=== PATIENT | female | born 1980 | race Two or more races ===

== ENCOUNTER → 2016-09-07 | Outpatient (CLI) | payer OTHER ==
[2016-09-07 08:23] LABS: ASPARTATE AMINO TRANSFERASE 15 U/L (15-37); BLOOD UREA NITROGEN 12 mg/dL (7-18)
== END | disposition home or self-care (01) ==
LOC: LAB 07:59
PROVIDERS: ATTEND Family Medicine
DX: N92.1 Excessive and frequent menstruation with irregular cycle (principal)
CPT/HCPCS: 36415; 80053; 82670; 83001; 83002; 84439; 84443; 84480; 85025

== ENCOUNTER → 2017-05-30 | Outpatient (CLI) | payer OTHER ==
[~2017-05-30] MED LIST: ACETAMINOPHEN 650 MG/20.3 ML UDC ONE; FENTANYL PF 100 MCG/2ML ONE; IBUP-1223 PO; LIDOCAINE-MPF 2% ,5ML ONE; LORA10CA PO; MAGN400T7 PO; MIDAZOLAM 1 MG/ML, 2ML ONE; MULT-658 PO; OXYcodone 5 MG/5 ML ORAL.SOL UDC ONE; PHEN10TA36 PO; PROPOFOL 10 MG/ML, 20ML ONE; VITA150T PO
== END ==
LOC: STAR 09:12
PROVIDERS: ATTEND Specialist
DX: Z02.9 Encounter for administrative examinations, unspecified (principal)

== ENCOUNTER 2017-06-06 10:23 | Day surgery (SDC) | payer OTHER ==
[~2017-06-06] VITALS: Ht 149.9 cm; Wt 64.0 kg
[~2017-06-06 10:23] MED LIST changes: -ACETAMINOPHEN 650 MG/20.3 ML UDC ONE; -FENTANYL PF 100 MCG/2ML ONE; -LIDOCAINE-MPF 2% ,5ML ONE; -MIDAZOLAM 1 MG/ML, 2ML ONE; -OXYcodone 5 MG/5 ML ORAL.SOL UDC ONE; -PROPOFOL 10 MG/ML, 20ML ONE
[2017-06-06] MEDS ORDERED: LACTATED RINGERS 1,000 ML IV SCH (10:45)
[2017-06-06] MEDS ORDERED: FENTANYL PF 100 MCG/2ML ONE (11:37)
[2017-06-06] MEDS ORDERED: MIDAZOLAM 1 MG/ML, 2ML ONE (11:37)
[2017-06-06 11:55] LABS: HCG UR SG 1.013 (1.003-1.030)
[2017-06-06] MEDS ORDERED: SCOPOLAMINE PATCH, 1.5MG PATCH.TD72 TD ONE (12:06)
[2017-06-06] MEDS ORDERED: EPINEPHRINE 1 MG/ML, 1ML ONE (12:17)
[2017-06-06] MEDS ORDERED: BUPIVACAINE/PF 0.25% ONE (12:17)
[2017-06-06] MEDS ORDERED: ONDANSETRON 2MG/ML, 2ML ONE (12:30)
[2017-06-06] MEDS ORDERED: DEXAMETHASONE 4 MG/ML, 1ML ONE (12:30)
[2017-06-06] MEDS ORDERED: PROPOFOL 10 MG/ML, 20ML ONE (12:30)
[2017-06-06] MEDS ORDERED: SUCCINYLCHOLINE 20 MG/ML, 10ML ONE (12:30)
[2017-06-06] MEDS ORDERED: KETOROLAC 30 MG/1 ML ONE (12:30)
[2017-06-06] MEDS ORDERED: ROCURONIUM 10 MG/ML,10ML ONE (12:30)
[2017-06-06] MEDS ORDERED: OXYcodone 5 MG/5 ML ORAL.SOL UDC PO PRN (13:00)
[2017-06-06] MEDS ORDERED: HYDROmorphone 1 MG/ML, 1ML IV PRN (13:00)
[2017-06-06] MEDS ORDERED: FENTANYL PF 100 MCG/2ML IV PRN (13:00)
[2017-06-06] MEDS ORDERED: ACETAMINOPHEN 325 MG TABLET PO PRN (13:00)
[2017-06-06] MEDS ORDERED: MEPERIDINE/PF 25MG/0.5ML IVPush PRN (13:00)
[2017-06-06] MEDS ORDERED: PROMETHAZINE 25 MG/ML, 1ML IV PRN (13:00)
[2017-06-07] MEDS ORDERED: LIDOCAINE-MPF 2% ,5ML ONE (13:58)
[2017-06-07] MEDS ORDERED: PROPOFOL 10 MG/ML, 20ML ONE (13:58)
== END 2017-06-06 17:00 ==
LOC: OUT 10:23
PROVIDERS: ATTEND Specialist
DX: Z30.2 Encounter for sterilization (principal); Z30.432 Encounter for removal of intrauterine contraceptive device
CPT/HCPCS: 58301; 58661; 81025; 88305; J0171; J0330; J1100; J1885; J2250; J2405; J2704; J3010; J3490; J7120; 88302

== ENCOUNTER → 2019-07-22 | Outpatient (CLI) | payer OTHER ==
[~2019-07-22] MED LIST changes: -MAGN400T7 PO; +MAGN400T9 PO
[2019-07-22 08:03] LABS: BASOPHILS # (AUTO) 0.07 x10^3/uL (0-0.1); BASOPHILS % (AUTO) 1 % (0-1); EOSINOPHILS # (AUTO) 0.03 x10^3/uL (0-0.4); EOSINOPHILS % (AUTO) 0 % (1-7); LYMPHOCYTES # (AUTO) 2.16 x10^3/uL (1-3.4); LYMPHOCYTES % (AUTO) 29 % (22-44); MD NO; MEAN CORPUSCULAR HEMOGLOBIN 31.8 pg (27.0-34.8); MEAN CORPUSCULAR HGB CONC 33.5 g/dL (32.4-35.8); MEAN CORPUSCULAR VOLUME 94.8 fL (80-100); MEAN PLATELET VOLUME 7.7 fL (7.4-10.4); MONOCYTES # (AUTO) 0.46 x10^3/uL (0.2-0.8); MONOCYTES % (AUTO) 6 % (2-9); NEUTROPHILS # (AUTO) 4.75 x10^3/uL (1.8-6.8); NEUTROPHILS % (AUTO) 64 % (42-75); PLATELET COUNT 369 x10^3/uL (130-400); RED BLOOD COUNT 4.38 x10^6/uL (3.82-5.3); RED CELL DISTRIBUTION WIDTH 13.9 % (9.6-15.2)
[2019-07-22 08:09] LABS: ALBUMIN 3.5 g/dL (3.4-5.0); ANION GAP 7 mmol/L (5-15); CALCIUM 8.3 mg/dL (8.5-10.1); CHLORIDE 105 mmol/L (98-107)
[2019-07-22 08:18] LABS: ALANINE AMINOTRANSFERASE 24 U/L (12-78); ALKALINE PHOSPHATASE 53 U/L (45-117); BILIRUBIN,TOTAL 0.4 mg/dL (0.2-1.0); CHOL/HDL RATIO 3.3; CHOLESTEROL, TOTAL 174 mg/dL (140-239); FREE T4 (FREE THYROXINE) 0.98 ng/dL (0.76-1.46); HDL CHOL % 30 % (28-40); HDL CHOLESTEROL (DIRECT) 53 mg/dL (40-60); LDL CHOLESTEROL,CALCULATED 100 mg/dL (54-169); LDL/HDL RATIO 1.9 (0.5-3.0); TRIGLYCERIDES 106 mg/dL (50-200); VLDL CHOLESTEROL 21 mg/dL (0-25)
== END | disposition home or self-care (01) ==
LOC: LAB 07:46
PROVIDERS: ATTEND Nurse Practitioner Primary Care
DX: Z00.00 Encounter for general adult medical examination without abnormal findings (principal)
CPT/HCPCS: 36415; 80053; 80061; 82306; 84439; 84443; 84481; 85025

== ENCOUNTER 2021-01-25 07:34 | Outpatient (CLI) | payer OTHER ==
[2021-01-25] MEDS ORDERED: TURMERIC PO (07:57)
[2021-01-25] MEDS ORDERED: COLL1POW2 PO (07:57)
[2021-01-25] MEDS ORDERED: [UNRECOGNIZED DRUG - CODE] EACHEYE (07:57)
[2021-01-25] MEDS ORDERED: FEXO1TAB29 PO (07:57)
[2021-01-25 08:28] LABS: BASOPHILS % (AUTO) 1 % (0-1); EOSINOPHILS % (AUTO) 1 % (1-7); LYMPHOCYTES % (AUTO) 31 % (22-44); MEAN CORPUSCULAR HEMOGLOBIN 32.3 pg (27.0-34.8); MEAN PLATELET VOLUME 7.5 fL (7.4-10.4); MONOCYTES % (AUTO) 6 % (2-9); NEUTROPHILS % (AUTO) 61 % (42-75); PLATELET COUNT 331 x10^3/uL (130-400); RED BLOOD COUNT 4.32 x10^6/uL (3.82-5.3); RED CELL DISTRIBUTION WIDTH 14.1 % (9.6-15.2)
[2021-01-25 08:37] LABS: ALANINE AMINOTRANSFERASE 23 U/L (12-78); ALBUMIN 3.4 g/dL (3.4-5.0); ANION GAP 6 mmol/L (5-15); CALCIUM 8.4 mg/dL (8.5-10.1); CHLORIDE 108 mmol/L (98-107); CREATININE 0.61 mg/dL (0.55-1.02)
[2021-01-25 08:39] LABS: ALKALINE PHOSPHATASE 50 U/L (45-117); BILIRUBIN,TOTAL 0.4 mg/dL (0.2-1.0)
[2021-01-25 08:44] LABS: MICROSCOPIC NOT IND
== END 2021-01-25 23:59 | disposition home or self-care (01) ==
LOC: STAR 07:34
PROVIDERS: ATTEND Obstetrics & Gynecology
DX: Z01.818 Encounter for other preprocedural examination (principal); R10.2 Pelvic and perineal pain; D25.9 Leiomyoma of uterus, unspecified
CPT/HCPCS: 36415; 80053; 81003; 84702; 85025; 93005

== ENCOUNTER → 2021-02-02 | Outpatient (CLI) | payer OTHER ==
[~2021-02-02] MED LIST changes: +COLL1POW2 PO; +FEXO1TAB29 PO; +TURMERIC PO; +[UNRECOGNIZED DRUG - CODE] EACHEYE
== END | disposition home or self-care (01) ==
LOC: LAB 08:53
PROVIDERS: ATTEND Obstetrics & Gynecology
DX: Z01.812 Encounter for preprocedural laboratory examination (principal); Z20.822 Contact with and (suspected) exposure to COVID-19
CPT/HCPCS: 36415; 87635

== ENCOUNTER 2021-02-08 05:41 | Inpatient (IN) | payer OTHER ==
[~2021-02-08] VITALS: Ht 149.9 cm; Wt 77.0 kg
[2021-02-09 11:32] VITALS: BP 127/80
== END 2021-02-09 12:10 | disposition home or self-care (01) | DRG 743 ==
LOC: ORIP 05:41 → 4NE 12:08
PROVIDERS: ADMIT Obstetrics & Gynecology; ATTEND Obstetrics & Gynecology
PROC: 0UT90ZZ Resection of Uterus, Open Approach (ICD-10-PCS; principal; 2021-02-08)
DX: D25.9 Leiomyoma of uterus, unspecified (principal); N92.0 Excessive and frequent menstruation with regular cycle; Z82.49 Family history of ischemic heart disease and other diseases of the circulatory system; Z83.3 Family history of diabetes mellitus